=== PATIENT | female | born 1955 | race Caucasian/White ===

== ENCOUNTER 2018-01-29 13:48 | Emergency (ER) | payer SELFPAY ==
[2018-01-29 13:54] VITALS: BP 134/73; PULSE 54; RESP 16; TEMP 97; O2SAT 100
--- NOTE | 2018-01-29 14:14 | ED PDOC ---
Lower Extremity Pain/Injury Time Seen by Provider: 01/29/18 13:54 Chief Complaint (Nursing): Lower Extremity Problem/Injury Chief Complaint (Provider): Right 5th Digit Pain History Per: Patient History/Exam Limitations: no limitations Onset/Duration Of Symptoms: Days Current Symptoms Are (Timing): Still Present Additional Complaint(s): 62 year old female presents to the ER for an evaluation of right 5th digit. Patient states she stubbed her toe on the side of the bed on Wednesday and she has pain now. Also states she notes the swelling is persistent. Denies fever, nu mbness, weakness or tingling. PMD: No Family Provider Past Medical History Reviewed: Historical Data, Nursing Documentation, Vital Signs Vital Signs: Last Vital Signs Temp 97 F L 01/29/18 13:51 Pulse 54 L 01/29/18 13:51 Resp 16 01/29/18 13:51 BP 134/73 01/29/18 13:51 Pulse Ox 100 01/29/18 13:51 - Medical History PMH: No Chronic Diseases - Family History Family History: States: Unknown Family Hx - Home Medications Home Medications: Ambulatory Orders Medication Instructions Recorded Ibuprofen [Motrin] 600 mg PO Q8 PRN #21 tab 01/29/18 - Allergies Allergies/Adverse Reactions: Allergies Allergy/AdvReac Type Severity Reaction Status Date / Time No Known Allergies Allergy Verified 01/29/18 13:51 Review of Systems ROS Statement: Except As Marked, All Systems Reviewed And Found Negative Constitutional: Negative for: Fever Musculoskeletal: Positive for: Other (Right 5th digit pain) Neurological: Negative for: Weakness, Numbness, Other (tingling) Psych: Negative for: Suicidal ideation (homicidal ideation ) Physical Exam - Reviewed Nursing Documentation Reviewed: Yes Vital Signs Reviewed: Yes - Physical Exam Appears: Positive for: Well, Non-toxic, No Acute Distress Head Exam: Positive for: ATRAUMATIC, NORMAL INSPECTION, NORMOCEPHALIC Skin: Positive for: Normal Color, Warm, Dry. Negative for: Rash Eye Exam: Positive for: Normal appearance Extremity: Positive for: Normal ROM, Tenderness (moderate pain on the right 5th digit ), Capillary Refill (less than 2 seconds), Other (no tenderness on the right ankle or foot, no sign of erythema ). Negative for: Deformity Neurologic/Psych: Positive for: Alert, Oriented (x3). Negative for: Motor/Sensory Deficits - ECG O2 Sat by Pulse Oximetry: 100 (RA) Pulse Ox Interpretation: Normal Medical Decision Making Medical Decision Making: Time: 1359 --Foot Right 3 Views [RAD] --Reevaluation Scribe Attestation: Documented by Kim Brink, acting as a scribe for Sumi Moon PA-C. Provider Scribe Attestation: All medical record entries made by the Scribe were at my direction and personally dictated by me. I have reviewed the chart and agree that the record accurately reflects my personal performance of the history, physical exam, medical decision making, and the department course for this patient. I have also personally directed, reviewed, and agree with the discharge instructions and disposition. Disposition - Clinical Impression Clinical Impression: Toe injury - Patient ED Disposition Is Patient to be Admitted: No - Disposition Disposition: Routine/Home Disposition Time: 14:40 Condition: FAIR Prescriptions: Ibuprofen [Motrin] 600 mg PO Q8 PRN #21 tab PRN Reason: Pain, Moderate (4-7) Instructions: Toe Injury (DC) Print Language: [place]
--- NOTE | 2018-01-29 14:32 | RAD ---
Date of service: 01/29/2018 PROCEDURE: Right Foot Radiographs. HISTORY: foot injury COMPARISON: None. FINDINGS: BONES: No fracture is seen. No periosteal reaction is noted. No erosions are noted. Phalanges appear intact. Mild degenerative changes are seen in the tarsal bone region. Large calcaneal spur is identified. Subtalar joint is unremarkable. JOINTS: No abnormal joint space widening noted. First and 2nd tarsal metatarsal joint is within normal limits. SOFT TISSUES: Minor soft tissue swelling. OTHER FINDINGS: None. IMPRESSION: No appreciable fracture.
== END 2018-01-29 14:56 | disposition home or self-care (01) ==
LOC: H.ER 13:48
DX: S99.921A Unspecified injury of right foot, initial encounter (principal); W22.8XXA Striking against or struck by other objects, initial encounter; Y92.89 Other specified places as the place of occurrence of the external cause